=== PATIENT | female | born 1950 | race Caucasian/White ===

== ENCOUNTER 2017-08-25 11:43 | Inpatient (IN) | payer MEDICARE, OTHER ==
[2017-08-25] MEDS: ONDANSETRON 4 MG INJ IV (13:26)
[2017-08-25] MEDS: SOD CHLORIDE 0.9% 1,000 ML IV (13:27)
[2017-08-25 13:53] LABS: ADD MAN DIFF? NO
[2017-08-25 13:55] LABS: BASOPHILS % 0.5 % (0.0-2.0); EOSINOPHILS % 0.1 % (0.0-7.0); HEMATOCRIT 36.2 % (37.0-47.0); HEMOGLOBIN 12.1 g/dl (12.0-16.0); LYMPHOCYTES # 0.9 10^3/ul (0.8-2.9); LYMPHOCYTES % 11.7 % (15.0-51.0); MEAN CORPUSCULAR HGB CONC 33.4 g/dl (32.0-37.0); MEAN CORPUSCULAR VOLUME 89.6 fl (82.0-101.0); MEAN PLATELET VOLUME 11.5 fl (7.4-10.4); MONOCYTE # 0.5 10^3/ul (0.3-0.9); MONOCYTES % 6.1 % (0.0-11.0); NEUTROPHIL # 6.5 10^3/ul (1.6-7.5); NEUTROPHILS % 80.6 % (39.0-77.0); NUCLEATED RED BLOOD CELLS # 0.1 10^3/ul (0.0-0.0); NUCLEATED RED BLOOD CELLS% 0.9 /100WBC (0.0-0.0); PLATELET COUNT 171 10^3/UL (140-415); RED BLOOD COUNT 4.04 10^6/ul (4.20-5.40); RED CELL DISTRIBUTION WIDTH 14.7 % (11.5-14.5)
[2017-08-25 14:12] LABS: ALANINE AMINOTRANSFERASE 34 IU/L (13-69); ALBUMIN 4.1 g/dl (3.3-4.9); ALBUMIN/GLOBULIN RATIO 1.46; ALKALINE PHOSPHATASE 131 IU/L (42-121); ANION GAP 21 (8-16); ASPARTATE AMINO TRANSFERASE 26 IU/L (15-46); BILIRUBIN,INDIRECT 0.3 mg/dl (0-1.1); BILIRUBIN,TOTAL 0.3 mg/dl (0.2-1.3); BLOOD UREA NITROGEN 27 mg/dl (7-20); CALCIUM 9.5 mg/dl (8.4-10.2); CARBON DIOXIDE 19 mmol/L (21-31); CHLORIDE 96 mmol/L (97-110); CREATININE 1.13 mg/dl (0.44-1.00); LIPASE 79 U/L (23-300); POTASSIUM 4.8 mmol/L (3.5-5.1); SODIUM 131 mmol/L (135-144); TOTAL PROTEIN 6.9 g/dl (6.1-8.1)
[2017-08-25 14:14] LABS: PARTIAL THROMBOPLASTIN TIME 24.5 Sec (25.0-35.0); PROTIME 14.4 Sec (11.9-14.9); PT RATIO 1.1
[2017-08-25 14:17] LABS: GLUCOSE 491 mg/dl (70-220)
[2017-08-25] MEDS: FUROSEMIDE 20 MG INJ IV (14:23)
[2017-08-25 14:25] LABS: TROPONIN-I < 0.012 ng/ml (0.00-0.12)
[2017-08-25 14:41] LABS: PHOSPHORUS 3.6 mg/dl (2.5-4.9)
[2017-08-25 14:41] LABS: MAGNESIUM 1.6 mg/dl (1.7-2.5)
[2017-08-25 14:45] LABS: MODE ROOM AIR; MetHgb Venous 0.3 %; Sample Type Blood venous; Site VENOUS LINE; Venous COHb 0.4 %; Venous Fraction OxyHgb 65.5 %; Venous Total Hemglobin 13.3 g/dl
[2017-08-25 14:52] LABS: B-TYPE NATRIURETIC PEPTIDE 29000 PG/ML (0-125)
[2017-08-25] MEDS ORDERED: INSULIN REGULAR 10 ML INJ IV (15:00)
[2017-08-25] MEDS: INSULIN REGULAR, HUMAN 100 UNIT/1 ML 3ML VIAL IV (15:34)
[2017-08-25] MEDS ORDERED: ONDANSETRON 4 MG INJ IV ×2 (16:30→17:00)
[2017-08-25] MEDS ORDERED: ACETAMINOPHEN 325 MG TAB PO (16:30)
[2017-08-25] MEDS ORDERED: DEXTROSE 50% 50 ML SYRINGE IV ×2 (16:40)
[2017-08-25] MEDS ORDERED: GLUCAGON 1 MG INJ IM (16:40)
[2017-08-25] MEDS ORDERED: GLUCOSE GEL 15 GRAM TUBE PO ×2 (16:40)
[2017-08-25] MEDS ORDERED: MAGNESIUM HYDROXIDE 30ML CUP PO (17:00)
[2017-08-25] MEDS ORDERED: BISACODYL (EC) 5 MG TAB PO (17:00)
[2017-08-25] MEDS ORDERED: NACL 0.9% 3 ML SYG IV (17:00)
[2017-08-25] MEDS ORDERED: DOCUSATE SODIUM 100 MG CAP PO (17:00)
[2017-08-25] MEDS: ASPIRIN 81 MG TAB PO (17:00)
[2017-08-25] MEDS ORDERED: ACETAMINOPHEN 650 MG SUPP PR (17:00)
[2017-08-25] MEDS: INSULIN ASPART [NOVOLOG] 3 ML PEN SC ×3 (17:14→21:18)
[2017-08-25 17:21] LABS: ANION GAP 21 (8-16); BLOOD UREA NITROGEN 28 mg/dl (7-20); CALCIUM 8.9 mg/dl (8.4-10.2); CARBON DIOXIDE 19 mmol/L (21-31); CHLORIDE 99 mmol/L (97-110); CREATININE 1.13 mg/dl (0.44-1.00); GLUCOSE 372 mg/dl (70-220); POTASSIUM 4.5 mmol/L (3.5-5.1); SODIUM 134 mmol/L (135-144)
[2017-08-25 17:31] LABS: CREATINE KINASE 47 IU/L (23-200)
[2017-08-25 17:33] LABS: HEMOGLOBIN A1C 11.8 % (0-5.9)
[2017-08-25 17:44] LABS: CK INDEX 2.1; HDL CHOLESTEROL 52 mg/dl (35-98); LDL CHOLESTEROL,CALCULATED 84 mg/dl; TRIGLYCERIDES 121 mg/dl (0-149); TROPONIN-I 0.012 ng/ml (0.00-0.12)
[2017-08-25 17:44] LABS: CHOLESTEROL 160 mg/dl (100-200)
[2017-08-25] MEDS: MAGNESIUM SULFATE 2 GM/50 ML 50 ML IVPB (18:30)
[2017-08-25] MEDS: glipiZIDE 10 MG TAB PO (18:40)
[2017-08-25] MEDS: metFORMIN 500 MG TAB PO (18:40)
[2017-08-25] MEDS: AMLODIPINE 10 MG TAB PO (18:41)
[2017-08-25 20:34] LABS: TROPONIN-I 0.012 ng/ml (0.00-0.12)
[2017-08-25] MEDS: METOPROLOL 50 MG TAB PO (21:07)
[2017-08-25] MEDS: PREGABALIN 50 MG CAP PO (21:08)
[2017-08-25] MEDS: FAMOTIDINE 20 MG TAB PO (21:08)
[2017-08-25] MEDS: ATORVASTATIN 80 MG TAB PO (21:08)
[2017-08-25 23:13] LABS: CREATINE KINASE 44 IU/L (23-200)
[2017-08-25 23:26] LABS: CK INDEX 2.4; CK-MB 1.06 ng/ml (0.0-2.4); TROPONIN-I 0.022 ng/ml (0.00-0.12)
[2017-08-26] MEDS ORDERED: PENDING SANTYL ORDER FOR WOUND CARE XX (01:00)
[2017-08-26] MEDS: GLUCOSE GEL 15 GRAM TUBE BUCCAL (02:11)
[2017-08-26 07:14] LABS: CHOL/HDL RATIO 3.2 RATIO; HDL CHOLESTEROL 47 mg/dl (35-98); LDL CHOLESTEROL,CALCULATED 83 mg/dl; TRIGLYCERIDES 120 mg/dl (0-149)
[2017-08-26 07:14] LABS: CHOLESTEROL 154 mg/dl (100-200); MAGNESIUM 2.1 mg/dl (1.7-2.5)
[2017-08-26 07:49] LABS: HEMOGLOBIN A1C 11.4 % (0-5.9)
[2017-08-26] MEDS ORDERED: AMLODIPINE 5 MG TAB PO (09:00)
[2017-08-26] MEDS: ASPIRIN (EC) 81 MG TAB PO (09:10)
[2017-08-26] MEDS: FAMOTIDINE 20 MG TAB PO ×2 (09:10→20:52)
[2017-08-26] MEDS: LISINOPRIL 5 MG TAB PO (09:10)
[2017-08-26] MEDS: AMLODIPINE 10 MG TAB PO (09:10)
[2017-08-26] MEDS: metFORMIN 500 MG TAB PO ×2 (09:11→18:01)
[2017-08-26] MEDS: FUROSEMIDE 20 MG TAB PO (09:12)
[2017-08-26] MEDS: CLOPIDOGREL 75 MG TAB PO (09:12)
[2017-08-26] MEDS: INSULIN ASPART [NOVOLOG] 3 ML PEN SC ×7 (09:14→21:35)
[2017-08-26] MEDS: ENOXAPARIN 40 MG/0.4 ML SYG SC (09:15)
[2017-08-26] MEDS: CALCIUM/VITAMIN D (500/200) TAB PO (09:17)
[2017-08-26] MEDS: PREGABALIN 50 MG CAP PO ×2 (09:17→20:52)
[2017-08-26] MEDS: FERROUS SULFATE (EC) 325 MG TAB PO (09:22)
[2017-08-26 14:19] LABS: TROPONIN-I 0.189 ng/ml (0.00-0.12)
[2017-08-26 18:18] LABS: ALANINE AMINOTRANSFERASE 31 IU/L (13-69); ALBUMIN 3.7 g/dl (3.3-4.9); ALBUMIN/GLOBULIN RATIO 1.37; ALKALINE PHOSPHATASE 101 IU/L (42-121); ANION GAP 17 (8-16); ASPARTATE AMINO TRANSFERASE 22 IU/L (15-46); BILIRUBIN,INDIRECT 0.1 mg/dl (0-1.1); BILIRUBIN,TOTAL 0.1 mg/dl (0.2-1.3); BLOOD UREA NITROGEN 33 mg/dl (7-20); CALCIUM 9.7 mg/dl (8.4-10.2); CARBON DIOXIDE 24 mmol/L (21-31); CHLORIDE 103 mmol/L (97-110); CREATININE 1.46 mg/dl (0.44-1.00); GLUCOSE 57 mg/dl (70-220); POTASSIUM 3.8 mmol/L (3.5-5.1); SODIUM 140 mmol/L (135-144); TOTAL PROTEIN 6.4 g/dl (6.1-8.1)
[2017-08-26 18:19] LABS: TROPONIN-I 0.213 ng/ml (0.00-0.12)
[2017-08-26] MEDS: ACETAMINOPHEN 325 MG TAB PO (20:53)
[2017-08-26] MEDS: ATORVASTATIN 80 MG TAB PO (21:38)
[2017-08-27 01:20] LABS: TROPONIN-I 0.176 ng/ml (0.00-0.12)
[2017-08-27 04:42] LABS: ADD UMIC NO; UR ASCORBIC ACID NEGATIVE (NEGATIVE); UR BILIRUBIN (Dip) NEGATIVE (NEGATIVE); UR BLOOD (Dip) NEGATIVE (NEGATIVE); UR CLARITY CLEAR (CLEAR); UR COLOR YELLOW (YELLOW); UR GLUCOSE (Dip) NEGATIVE (NEGATIVE); UR KETONES (Dip) NEGATIVE (NEGATIVE); UR LEUKOCYTE ESTERASE (Dip) NEGATIVE Leu/ul (NEGATIVE); UR NITRITE (Dip) NEGATIVE (NEGATIVE); UR SPECIFIC GRAVITY (Dip) 1.009 (1.003-1.030); UR TOTAL PROTEIN (Dip) NEGATIVE (NEGATIVE); UR UROBILINOGEN (Dip) NEGATIVE (NEGATIVE)
[2017-08-27] MEDS: ACETAMINOPHEN 325 MG TAB PO (06:22)
[2017-08-27] MEDS: metFORMIN 500 MG TAB PO (07:55)
[2017-08-27] MEDS: INSULIN ASPART [NOVOLOG] 3 ML PEN SC ×7 (08:47→20:47)
[2017-08-27] MEDS: FERROUS SULFATE (EC) 325 MG TAB PO (09:35)
[2017-08-27] MEDS: FAMOTIDINE 20 MG TAB PO ×2 (09:35→20:39)
[2017-08-27] MEDS: CLOPIDOGREL 75 MG TAB PO (09:35)
[2017-08-27] MEDS: FUROSEMIDE 20 MG TAB PO (09:36)
[2017-08-27] MEDS: AMLODIPINE 10 MG TAB PO (09:36)
[2017-08-27] MEDS: LISINOPRIL 5 MG TAB PO (09:36)
[2017-08-27] MEDS: PREGABALIN 50 MG CAP PO ×2 (09:37→20:37)
[2017-08-27] MEDS: CALCIUM/VITAMIN D (500/200) TAB PO (09:37)
[2017-08-27] MEDS: ASPIRIN (EC) 81 MG TAB PO (09:37)
[2017-08-27] MEDS: ENOXAPARIN 40 MG/0.4 ML SYG SC (10:08)
[2017-08-27 15:37] LABS: ANION GAP 16 (8-16); BLOOD UREA NITROGEN 32 mg/dl (7-20); CALCIUM 9.4 mg/dl (8.4-10.2); CARBON DIOXIDE 27 mmol/L (21-31); CHLORIDE 99 mmol/L (97-110); CREATININE 1.21 mg/dl (0.44-1.00); GLUCOSE 94 mg/dl (70-220); POTASSIUM 4.8 mmol/L (3.5-5.1); SODIUM 137 mmol/L (135-144)
[2017-08-27 15:52] LABS: TROPONIN-I 0.144 ng/ml (0.00-0.12)
[2017-08-27] MEDS: INSULIN GLARGINE [LANtus] 3 ML PEN SC (20:46)
[2017-08-27] MEDS: ATORVASTATIN 80 MG TAB PO (20:47)
[2017-08-28] MEDS: ACCU-CHEK XX (02:00)
[2017-08-28] MEDS: INSULIN ASPART [NOVOLOG] 3 ML PEN SC ×8 (07:55→21:00)
[2017-08-28] MEDS: FAMOTIDINE 20 MG TAB PO ×2 (09:00→20:53)
[2017-08-28] MEDS: PREGABALIN 50 MG CAP PO (09:00)
[2017-08-28] MEDS: FERROUS SULFATE (EC) 325 MG TAB PO (09:00)
[2017-08-28] MEDS: ENOXAPARIN 40 MG/0.4 ML SYG SC (09:00)
[2017-08-28] MEDS: LISINOPRIL 5 MG TAB PO (09:00)
[2017-08-28] MEDS: CALCIUM/VITAMIN D (500/200) TAB PO (09:00)
[2017-08-28] MEDS: AMLODIPINE 10 MG TAB PO (09:00)
[2017-08-28] MEDS: CLOPIDOGREL 75 MG TAB PO (09:00)
[2017-08-28] MEDS: ASPIRIN (EC) 81 MG TAB PO (09:00)
[2017-08-28] MEDS: REGADENOSON 0.4 MG/5 ML SYG (09:15)
[2017-08-28] MEDS: ATORVASTATIN 80 MG TAB PO (20:53)
[2017-08-28] MEDS: PREGABALIN 25 MG CAP PO (20:57)
[2017-08-28] MEDS: INSULIN GLARGINE [LANtus] 3 ML PEN SC (20:58)
[2017-08-29] MEDS: ACCU-CHEK XX (02:00)
[2017-08-29] MEDS: ACETAMINOPHEN 325 MG TAB PO (03:42)
[2017-08-29] MEDS: ASPIRIN (EC) 81 MG TAB PO (07:44)
[2017-08-29] MEDS: CLOPIDOGREL 75 MG TAB PO (07:44)
[2017-08-29] MEDS: LISINOPRIL 5 MG TAB PO (07:44)
[2017-08-29] MEDS: FERROUS SULFATE (EC) 325 MG TAB PO (07:45)
[2017-08-29] MEDS: AMLODIPINE 10 MG TAB PO (07:45)
[2017-08-29] MEDS: CALCIUM/VITAMIN D (500/200) TAB PO (07:46)
[2017-08-29] MEDS: FAMOTIDINE 20 MG TAB PO (07:46)
[2017-08-29] MEDS: ENOXAPARIN 40 MG/0.4 ML SYG SC (07:48)
[2017-08-29] MEDS: PREGABALIN 25 MG CAP PO (07:54)
[2017-08-29] MEDS: INSULIN ASPART [NOVOLOG] 3 ML PEN SC ×4 (08:02→12:35)
[2017-08-29 08:13] LABS: ANION GAP 13 (8-16); BLOOD UREA NITROGEN 35 mg/dl (7-20); CALCIUM 9.6 mg/dl (8.4-10.2); CARBON DIOXIDE 32 mmol/L (21-31); CHLORIDE 99 mmol/L (97-110); CREATININE 1.21 mg/dl (0.44-1.00); GLUCOSE 156 mg/dl (70-220); POTASSIUM 3.8 mmol/L (3.5-5.1); SODIUM 140 mmol/L (135-144)
[2017-08-29] MEDS ORDERED: VITAMIN A & D 5 GM OINT PACKET TOP (11:03)
== END 2017-08-29 13:40 | disposition home health service (06) | DRG 291 ==
LOC: FTE 11:43 → TEL 16:25
PROVIDERS: Internal Medicine Nephrology
DX: I13.0 Hypertensive heart and chronic kidney disease with heart failure and stage 1 through stage 4 chronic kidney disease, or unspecified chronic kidney disease (principal); J18.9 Pneumonia, unspecified organism; I50.33 Acute on chronic diastolic (congestive) heart failure; E87.2 Acidosis; N17.9 Acute kidney failure, unspecified; I16.0 Hypertensive urgency; I49.5 Sick sinus syndrome; E11.65 Type 2 diabetes mellitus with hyperglycemia; E11.22 Type 2 diabetes mellitus with diabetic chronic kidney disease; N18.9 Chronic kidney disease, unspecified; I25.10 Atherosclerotic heart disease of native coronary artery without angina pectoris; E78.5 Hyperlipidemia, unspecified; D64.9 Anemia, unspecified; E66.9 Obesity, unspecified; Z68.35 Body mass index [BMI] 35.0-35.9, adult; Z91.14 Patient's other noncompliance with medication regimen; Z79.4 Long term (current) use of insulin; Z95.0 Presence of cardiac pacemaker; Z79.02 Long term (current) use of antithrombotics/antiplatelets; Z79.82 Long term (current) use of aspirin
CPT/HCPCS: 36415; 71045; 78452; 80048; 80053; 80061; 81003; 82550; 82553; 82803; 82962; 83036; 83690; 83735; 83880; 84100; 84443; 84484; 85025; 85610; 85730; 93005; 93017; 93306; 96361; 96372; 96374; 96375; 99291-25

== ENCOUNTER → 2017-09-07 | Outpatient (CLI) | payer MEDICARE, OTHER | END | disposition home or self-care (01) | LOC: DIB 15:00 | DX: Z02.9 Encounter for administrative examinations, unspecified (principal) ==

== ENCOUNTER 2017-11-08 12:52 | Inpatient (IN) | payer MEDICARE, OTHER ==
[2017-11-08] MEDS ORDERED: NITROGLYCERIN (SL) 0.4 MG TAB SL (13:00)
[2017-11-08] MEDS: NITROGLYCERIN 2% 1 GM OINT PKT TD (13:08)
[2017-11-08 13:22] LABS: ADD MAN DIFF? NO
[2017-11-08 13:37] LABS: BASOPHILS % 0.5 % (0.0-2.0); EOSINOPHILS % 0.2 % (0.0-7.0); HEMATOCRIT 36.9 % (37.0-47.0); LYMPHOCYTES # 0.8 10^3/ul (0.8-2.9); LYMPHOCYTES % 13.5 % (15.0-51.0); MEAN CORPUSCULAR HEMOGLOBIN 29.5 pg (29.0-33.0); MEAN CORPUSCULAR HGB CONC 32.5 g/dl (32.0-37.0); MEAN CORPUSCULAR VOLUME 90.7 fl (82.0-101.0); MEAN PLATELET VOLUME 11.6 fl (7.4-10.4); MONOCYTE # 0.4 10^3/ul (0.3-0.9); MONOCYTES % 6.8 % (0.0-11.0); NEUTROPHIL # 4.5 10^3/ul (1.6-7.5); NEUTROPHILS % 78.7 % (39.0-77.0); PLATELET COUNT 198 10^3/UL (140-415); RED BLOOD COUNT 4.07 10^6/ul (4.20-5.40); RED CELL DISTRIBUTION WIDTH 14.8 % (11.5-14.5)
[2017-11-08 13:37] LABS: WHITE BLOOD COUNT 5.8 10^3/ul (4.8-10.8)
[2017-11-08 13:43] LABS: ANION GAP 19 (8-16); BLOOD UREA NITROGEN 27 mg/dl (7-20); CALCIUM 9.7 mg/dl (8.4-10.2); CARBON DIOXIDE 21 mmol/L (21-31); CHLORIDE 98 mmol/L (97-110); CREATININE 1.24 mg/dl (0.44-1.00); GLUCOSE 300 mg/dl (70-220); POTASSIUM 4.4 mmol/L (3.5-5.1); SODIUM 134 mmol/L (135-144)
[2017-11-08 13:55] LABS: TROPONIN-I < 0.012 ng/ml (0.000-0.120)
[2017-11-08] MEDS ORDERED: ACETAMINOPHEN 325 MG TAB PO (15:30)
[2017-11-08] MEDS ORDERED: ONDANSETRON 4 MG INJ IV ×2 (15:30→18:00)
[2017-11-08] MEDS ORDERED: DOCUSATE SODIUM 100 MG CAP PO (18:00)
[2017-11-08] MEDS ORDERED: GLUCOSE GEL 15 GRAM TUBE BUCCAL (18:00)
[2017-11-08] MEDS ORDERED: NACL 0.9% 3 ML SYG IV (18:00)
[2017-11-08] MEDS ORDERED: GLUCOSE GEL 15 GRAM TUBE PO ×2 (18:00)
[2017-11-08] MEDS ORDERED: DEXTROSE 50% 50 ML SYRINGE IV ×2 (18:00)
[2017-11-08] MEDS ORDERED: GLUCAGON 1 MG INJ IM (18:00)
[2017-11-08] MEDS ORDERED: ACETAMINOPHEN 650 MG SUPP PR (18:00)
[2017-11-08] MEDS: FUROSEMIDE 20 MG INJ IV (18:16)
[2017-11-08 19:03] LABS: CREATINE KINASE 43 IU/L (23-200)
[2017-11-08 19:14] LABS: B-TYPE NATRIURETIC PEPTIDE 19900 PG/ML (0-125)
[2017-11-08 19:15] LABS: CK INDEX 1.8; CK-MB 0.76 ng/ml (0.0-2.4)
[2017-11-08 19:16] LABS: TROPONIN-I < 0.012 ng/ml (0.000-0.120)
[2017-11-08] MEDS: ATORVASTATIN 80 MG TAB PO (20:46)
[2017-11-08] MEDS: ACETAMINOPHEN 325 MG TAB PO (20:47)
[2017-11-08] MEDS: FAMOTIDINE 20 MG TAB PO (20:47)
[2017-11-08] MEDS: INSULIN GLARGINE [LANtus] 3 ML PEN SC (20:52)
[2017-11-08] MEDS: INSULIN ASPART [NOVOLOG] 3 ML PEN SC (20:52)
[2017-11-08] MEDS: PREGABALIN 50 MG CAP PO (21:58)
[2017-11-08] MEDS: ISOSORBIDE DINITRATE 10 MG TAB PO (21:59)
[2017-11-08] MEDS ORDERED: VITAMIN A & D 5 GM OINT PACKET TOP (22:11)
[2017-11-09 01:52] LABS: CREATINE KINASE 38 IU/L (23-200)
[2017-11-09 02:02] LABS: CK INDEX 1.9; CK-MB 0.72 ng/ml (0.0-2.4)
[2017-11-09 02:06] LABS: TROPONIN-I 0.018 ng/ml (0.000-0.120)
[2017-11-09] MEDS: ACCU-CHEK XX (02:48)
[2017-11-09] MEDS: ZOLPIDEM 5 MG TAB PO ×2 (02:55→03:20)
[2017-11-09] MEDS: MAGNESIUM HYDROXIDE 30ML CUP PO (02:55)
[2017-11-09] MEDS: PANTOPRAZOLE 40 MG INJ IV (06:18)
[2017-11-09 07:13] LABS: ADD MAN DIFF? NO
[2017-11-09 07:18] LABS: WHITE BLOOD COUNT 5.5 10^3/ul (4.8-10.8)
[2017-11-09 07:18] LABS: BASOPHILS % 0.7 % (0.0-2.0); EOSINOPHILS # 0.1 10^3/ul (0.0-0.5); EOSINOPHILS % 2.4 % (0.0-7.0); HEMATOCRIT 32.9 % (37.0-47.0); HEMOGLOBIN 10.8 g/dl (12.0-16.0); LYMPHOCYTES # 1.3 10^3/ul (0.8-2.9); LYMPHOCYTES % 23.8 % (15.0-51.0); MEAN CORPUSCULAR HEMOGLOBIN 29.2 pg (29.0-33.0); MEAN CORPUSCULAR HGB CONC 32.8 g/dl (32.0-37.0); MEAN CORPUSCULAR VOLUME 88.9 fl (82.0-101.0); MEAN PLATELET VOLUME 11.6 fl (7.4-10.4); MONOCYTE # 0.4 10^3/ul (0.3-0.9); NEUTROPHIL # 3.6 10^3/ul (1.6-7.5); NEUTROPHILS % 64.7 % (39.0-77.0); NUCLEATED RED BLOOD CELLS% 0.4 /100WBC (0.0-0.0); PLATELET COUNT 172 10^3/UL (140-415); RED CELL DISTRIBUTION WIDTH 14.8 % (11.5-14.5)
[2017-11-09] MEDS ORDERED: glipiZIDE 10 MG TAB PO (07:30)
[2017-11-09 07:41] LABS: HEMOGLOBIN A1C 10.8 % (0-5.9)
[2017-11-09 07:44] LABS: CHOLESTEROL 96 mg/dl (100-200)
[2017-11-09 07:44] LABS: CHOL/HDL RATIO 1.6 RATIO; HDL CHOLESTEROL 57 mg/dl (35-98); LDL CHOLESTEROL,CALCULATED 27 mg/dl; TRIGLYCERIDES 60 mg/dl (0-149)
[2017-11-09 07:53] LABS: ALANINE AMINOTRANSFERASE 99 IU/L (13-69); ALBUMIN 3.1 g/dl (3.3-4.9); ALKALINE PHOSPHATASE 105 IU/L (42-121); ANION GAP 17 (8-16); ASPARTATE AMINO TRANSFERASE 69 IU/L (15-46); BILIRUBIN,INDIRECT 0.5 mg/dl (0-1.1); BILIRUBIN,TOTAL 0.5 mg/dl (0.2-1.3); BLOOD UREA NITROGEN 36 mg/dl (7-20); CALCIUM 9.2 mg/dl (8.4-10.2); CARBON DIOXIDE 25 mmol/L (21-31); CHLORIDE 98 mmol/L (97-110); CREATININE 1.43 mg/dl (0.44-1.00); GLUCOSE 154 mg/dl (70-220); SODIUM 136 mmol/L (135-144); TOTAL PROTEIN 5.9 g/dl (6.1-8.1)
[2017-11-09] MEDS: INSULIN ASPART [NOVOLOG] 3 ML PEN SC ×7 (08:16→20:18)
[2017-11-09] MEDS: LISINOPRIL 5 MG TAB PO (08:57)
[2017-11-09] MEDS: CLOPIDOGREL 75 MG TAB PO (08:57)
[2017-11-09] MEDS: FUROSEMIDE 20 MG INJ IV (08:57)
[2017-11-09] MEDS: FAMOTIDINE 20 MG TAB PO (08:58)
[2017-11-09] MEDS: ISOSORBIDE DINITRATE 10 MG TAB PO ×3 (08:58→20:20)
[2017-11-09] MEDS: AMLODIPINE 10 MG TAB PO ×2 (08:58→09:00)
[2017-11-09] MEDS: PREGABALIN 50 MG CAP PO ×2 (08:59→20:19)
[2017-11-09] MEDS: ENOXAPARIN 40 MG/0.4 ML SYG SC (09:00)
[2017-11-09] MEDS: VERAPAMIL 40 MG TAB PO (14:53)
[2017-11-09] MEDS: PHENOL 1.4% SOLN 180 ML BTL MT (14:53)
[2017-11-09] MEDS: ACETAMINOPHEN 325 MG TAB PO (20:19)
[2017-11-09] MEDS: ATORVASTATIN 80 MG TAB PO (20:19)
[2017-11-09] MEDS: INSULIN GLARGINE [LANtus] 3 ML PEN SC (20:26)
[2017-11-10] MEDS: ACCU-CHEK XX (02:00)
[2017-11-10] MEDS: PANTOPRAZOLE (EC) 40 MG TAB PO (05:48)
[2017-11-10 07:20] LABS: ADD MAN DIFF? NO
[2017-11-10 07:30] LABS: BASOPHILS % 0.7 % (0.0-2.0); EOSINOPHILS # 0.4 10^3/ul (0.0-0.5); EOSINOPHILS % 7.1 % (0.0-7.0); HEMATOCRIT 35.8 % (37.0-47.0); HEMOGLOBIN 11.8 g/dl (12.0-16.0); LYMPHOCYTES # 0.7 10^3/ul (0.8-2.9); LYMPHOCYTES % 12.3 % (15.0-51.0); MEAN CORPUSCULAR HEMOGLOBIN 29.6 pg (29.0-33.0); MEAN CORPUSCULAR VOLUME 89.9 fl (82.0-101.0); MEAN PLATELET VOLUME 11.3 fl (7.4-10.4); MONOCYTE # 0.5 10^3/ul (0.3-0.9); MONOCYTES % 8.9 % (0.0-11.0); NEUTROPHIL # 4.3 10^3/ul (1.6-7.5); NEUTROPHILS % 70.7 % (39.0-77.0); NUCLEATED RED BLOOD CELLS% 0.3 /100WBC (0.0-0.0); PLATELET COUNT 185 10^3/UL (140-415); RED BLOOD COUNT 3.98 10^6/ul (4.20-5.40); RED CELL DISTRIBUTION WIDTH 14.6 % (11.5-14.5)
[2017-11-10 07:52] LABS: ANION GAP 14 (8-16); BLOOD UREA NITROGEN 30 mg/dl (7-20); CALCIUM 9.3 mg/dl (8.4-10.2); CARBON DIOXIDE 29 mmol/L (21-31); CHLORIDE 103 mmol/L (97-110); CREATININE 1.39 mg/dl (0.44-1.00); GLUCOSE 99 mg/dl (70-220); POTASSIUM 3.5 mmol/L (3.5-5.1); SODIUM 142 mmol/L (135-144)
[2017-11-10] MEDS: INSULIN ASPART [NOVOLOG] 3 ML PEN SC ×7 (08:00→20:46)
[2017-11-10] MEDS: PREGABALIN 50 MG CAP PO ×2 (08:33→20:43)
[2017-11-10] MEDS: CLOPIDOGREL 75 MG TAB PO (08:34)
[2017-11-10] MEDS: ENOXAPARIN 40 MG/0.4 ML SYG SC (08:34)
[2017-11-10] MEDS: ISOSORBIDE DINITRATE 10 MG TAB PO ×3 (08:34→20:42)
[2017-11-10] MEDS: AMLODIPINE 10 MG TAB PO (08:34)
[2017-11-10] MEDS: LISINOPRIL 5 MG TAB PO (08:34)
[2017-11-10] MEDS: FUROSEMIDE 20 MG INJ IV (08:35)
[2017-11-10] MEDS: ATORVASTATIN 80 MG TAB PO (20:42)
[2017-11-10] MEDS: INSULIN GLARGINE [LANtus] 3 ML PEN SC (20:45)
[2017-11-11] MEDS: ACCU-CHEK XX (02:00)
[2017-11-11] MEDS: PANTOPRAZOLE (EC) 40 MG TAB PO (04:57)
[2017-11-11] MEDS: INSULIN ASPART [NOVOLOG] 3 ML PEN SC ×7 (07:54→20:28)
[2017-11-11] MEDS: PREGABALIN 50 MG CAP PO ×2 (09:06→20:23)
[2017-11-11] MEDS: AMLODIPINE 10 MG TAB PO (09:06)
[2017-11-11] MEDS: CLOPIDOGREL 75 MG TAB PO (09:06)
[2017-11-11] MEDS: ISOSORBIDE DINITRATE 10 MG TAB PO ×2 (09:06→13:40)
[2017-11-11] MEDS: LISINOPRIL 5 MG TAB PO (09:07)
[2017-11-11] MEDS: FUROSEMIDE 20 MG INJ IV (09:07)
[2017-11-11] MEDS: BISACODYL (EC) 5 MG TAB PO (09:07)
[2017-11-11] MEDS: ENOXAPARIN 40 MG/0.4 ML SYG SC (09:13)
[2017-11-11 14:00] LABS: CK-MB 0.45 ng/ml (0.0-2.4)
[2017-11-11 14:00] LABS: TROPONIN-I 0.012 ng/ml (0.000-0.120)
[2017-11-11 15:48] LABS: TROPONIN-I 0.012 ng/ml (0.000-0.120)
[2017-11-11 17:36] LABS: D-DIMER 781.87 ng/ml (<460)
[2017-11-11] MEDS: ACETAMINOPHEN 325 MG TAB PO (18:49)
[2017-11-11] MEDS: ATORVASTATIN 80 MG TAB PO (20:23)
[2017-11-11] MEDS: ISOSORBIDE DINITRATE 20 MG TAB PO (20:23)
[2017-11-11] MEDS: INSULIN GLARGINE [LANtus] 3 ML PEN SC (20:28)
[2017-11-12] MEDS: ACCU-CHEK XX (02:00)
[2017-11-12] MEDS: PANTOPRAZOLE (EC) 40 MG TAB PO (06:26)
[2017-11-12] MEDS: INSULIN ASPART [NOVOLOG] 3 ML PEN SC ×6 (08:22→17:21)
[2017-11-12] MEDS: ENOXAPARIN 40 MG/0.4 ML SYG SC (08:24)
[2017-11-12] MEDS: FUROSEMIDE 20 MG INJ IV (08:26)
[2017-11-12] MEDS: ISOSORBIDE DINITRATE 20 MG TAB PO ×2 (08:28→13:44)
[2017-11-12] MEDS: AMLODIPINE 10 MG TAB PO (08:28)
[2017-11-12] MEDS: LISINOPRIL 5 MG TAB PO (08:28)
[2017-11-12] MEDS: PREGABALIN 50 MG CAP PO (08:28)
[2017-11-12] MEDS: CLOPIDOGREL 75 MG TAB PO (08:29)
[2017-11-12] MEDS: ACETAMINOPHEN 325 MG TAB PO (14:41)
== END 2017-11-12 18:10 | disposition home or self-care (01) | DRG 291 ==
LOC: E/R 12:52 → MS4 15:17
DX: I13.0 Hypertensive heart and chronic kidney disease with heart failure and stage 1 through stage 4 chronic kidney disease, or unspecified chronic kidney disease (principal); I50.43 Acute on chronic combined systolic (congestive) and diastolic (congestive) heart failure; E87.0 Hyperosmolality and hypernatremia; I25.10 Atherosclerotic heart disease of native coronary artery without angina pectoris; E78.5 Hyperlipidemia, unspecified; E11.22 Type 2 diabetes mellitus with diabetic chronic kidney disease; N18.9 Chronic kidney disease, unspecified; I25.2 Old myocardial infarction; D64.9 Anemia, unspecified; E66.3 Overweight; R25.1 Tremor, unspecified; F99 Mental disorder, not otherwise specified; K13.0 Diseases of lips; Z91.19 Patient's noncompliance with other medical treatment and regimen; Z95.0 Presence of cardiac pacemaker; Z88.2 Allergy status to sulfonamides; Z79.4 Long term (current) use of insulin; Z79.82 Long term (current) use of aspirin; Z79.02 Long term (current) use of antithrombotics/antiplatelets
CPT/HCPCS: 36415; 71045; 80048; 80053; 80061; 82550; 82553; 82962; 83036; 83880; 84443; 84484; 85025; 85378; 93005; 93970; 99285-25; G0378

== ENCOUNTER 2018-09-01 18:35 | Emergency (ER) | payer MEDICARE, OTHER ==
[2018-09-01] MEDS ORDERED: morphine 10 MG INJ IM (20:30)
[2018-09-01] MEDS: ACETAMINOPHEN 500 MG TAB PO (20:43)
[2018-09-01] MEDS: IBUPROFEN 800 MG TAB PO (20:43)
== END 2018-09-01 22:38 | disposition home or self-care (01) ==
LOC: FTE 18:35
DX: M54.5 Low back pain (principal); M25.551 Pain in right hip; I10 Essential (primary) hypertension; E11.9 Type 2 diabetes mellitus without complications; Z79.4 Long term (current) use of insulin; Z79.82 Long term (current) use of aspirin; Z95.0 Presence of cardiac pacemaker
CPT/HCPCS: 72100; 72220; 73510; 99283-25